=== PATIENT | male | born 1965 | race Caucasian/White ===

== ENCOUNTER 2019-06-07 07:35 | Emergency (ER) | payer SELFPAY ==
[~2019-06-07] VITALS: Ht 172.7 cm; Wt 81.6 kg
[2019-06-07] MEDS ORDERED: ONDANSETRON HCL INJ 2MG/ML 2ML 2 MG/ML VIAL IV STA (07:43)
[2019-06-07] MEDS ORDERED: SODIUM CHLORIDE 0.9% 1000ML 1,000 ML IV STA (07:43)
[2019-06-07] MEDS ORDERED: CLONIDINE HCL 0.1 MG TAB PO ONE (08:00)
--- NOTE | 2019-06-07 08:04 | NUR ---
BLOOD COLLECTED AND TAKEN TO LAB.
[2019-06-07] MEDS ORDERED: MORPHINE SULFATE INJ 4 MG/ML INJ 1ML IV ONE (08:05)
[2019-06-07 08:09] LABS: BASOPHILS % 0.3 % (0.0-1.0); EOSINOPHILS # (AUTO) 0.1 (0.0-0.4); EOSINOPHILS % 3.8 % (0.0-6.0); HEMATOCRIT 27.3 % (38.2-49.6); HEMOGLOBIN 9.1 g/dL (14.0-18.0); LYMPHOCYTES # (AUTO) 0.7 (1.0-3.2); LYMPHOCYTES % 17.9 % (18.0-39.1); MEAN CORPUSCULAR HEMOGLOBIN 31.7 pg (28-32); MEAN CORPUSCULAR HGB CONC 33.3 g/dL (31-35); MEAN CORPUSCULAR VOLUME 95.1 fL (81-99); MONOCYTES # (AUTO) 0.3 (0.2-0.8); NEUTROPHILS # (AUTO) 2.5 (2.1-6.9); NEUTROPHILS % 69.2 % (38.7-80.0); PLATELET COUNT 119 x10e3/uL (140-360); RED BLOOD COUNT 2.87 x10e6/uL (4.3-5.7); RED CELL DISTRIBUTION WIDTH 14.8 % (11.7-14.4)
[2019-06-07 08:31] LABS: ALBUMIN 3.4 g/dL (3.5-5.0); ANION GAP 13.7 mmol/L (8-16); CREATININE, SERUM 3.87 mg/dL (0.72-1.25); POTASSIUM 3.7 mmol/L (3.5-5.1)
[2019-06-07 08:32] LABS: BILIRUBIN,URINE NEGATIVE (NEGATIVE); CLARITY,URINE CLEAR (CLEAR); COLOR,URINE YELLOW (YELLOW); KETONES,URINE NEGATIVE (NEGATIVE); LEUKOCYTE ESTERASE ,URINE NEGATIVE (NEGATIVE); NITRITE,URINE NEGATIVE (NEGATIVE); PROTEIN,URINE DIPSTICK 3+ (NEGATIVE); URINE UROBILINOGEN 0.2 mg/dL (0.2 - 1)
--- NOTE | 2019-06-07 08:35 | Diagnostic Imaging Report ---
AP view the pelvis and AP view of the right hip Clinical indication: Fall, pain Comparison: None Impression: There is cortical irregularity of the lesser trochanter of the left femur which may secondary to partial avulsion. No other acute osseous abnormalities are identified. The hips demonstrate mild bilateral degenerative changes. Signed by: Bakari Jara MD on 06/07/2019 8:33 AM
[2019-06-07 08:38] LABS: CREATINE KINASE MB 5.1 ng/mL (0-5.0)
--- NOTE | 2019-06-07 08:39 | Diagnostic Imaging Report ---
Left femur, 2 views of 4 radiographs Clinical indication: Fall, pain Comparison: None Impression: The left femoral head is normally directed into the acetabulum. There is cortical irregularity of the lesser trochanter which may be secondary to partial avulsion. No other acute osseous abnormalities are identified. Signed by: Bakari Jara MD on 06/07/2019 8:36 AM
[2019-06-07 08:44] LABS: INR 1.02; PARTIAL THROMBOPLASTIN TIME 31.5 seconds (23.8-35.5)
[2019-06-07 08:47] LABS: AMORPHOUS SEDIMENT,URINE FEW (FEW); BACTERIA,URINE FEW /HPF; EPITHELIAL CELLS,URINE FEW /LPF; HYALINE CASTS 0-1 (0-1); MUCUS,URINE FEW (RARE); RBC,URINE 0-5 /HPF (0-5)
[2019-06-07 08:52] LABS: CALCIUM 6.4 mg/dL (8.4-10.2)
--- NOTE | 2019-06-07 08:52 | NUR ---
per lab patients calcium is 6.4 MD notified.
--- NOTE | 2019-06-07 09:42 | Diagnostic Imaging Report ---
History: Fall, approximately 8 feet. Comparison studies:None Technique: Axial images were obtained from the brain and cervical spine. Coronal and sagittal images reconstructed from the axial data. Intravenous contrast: None Dose modulation, iterative reconstruction, and/or weight based adjustment of the mA/kV was utilized to reduce the radiation dose to as low as reasonably achievable. Findings: Head CT: Scalp/skull: No abnormalities. No fractures, blastic or lytic lesions. Brain sulci: Appropriate for age. Ventricles: Normal in size and configuration. No hydrocephalus. Extra-axial spaces: No masses. No fluid collections. Parenchyma: No abnormal densities. No masses, hemorrhage, acute or chronic cortical vascular insults. Sellar/suprasellar region: No abnormalities. Craniocervical junction: Patent foramen magnum. No Chiari one malformation. Atherosclerotic calcifications of the carotid siphons and vertebral arteries Cervical spine CT: Fractures: None. Soft tissues: No gross abnormalities. Atlantoaxial articulation: Intact. Alignment: Straightening of the normal lordosis. No scoliosis. Cervicomedullary junction: No abnormalities. Patent foramen magnum. Vertebrae: No infection or neoplasm. Degenerative changes: Disc degeneration with decreased intervertebral space and endplate sclerosis at 4-5 and C5-6. Degenerative foraminal narrowing, moderate right and severe left at C4-5, moderate left at C5-6. Moderate degenerative canal stenosis at C4-5 and C5-6. Degenerative changes at the right AC joint. Incidental findings: Impression: Head CT: 1. No acute intracranial abnormality. Cervical spine CT: 1. No acute abnormalities. Degenerative changes as described above. Cannot exclude ligament, spinal cord and or vascular abnormalities on the basis of this examination. Signed by: DR Cedrick Elizabeth M.D. on 06/07/2019 9:45 AM
--- NOTE | 2019-06-07 10:07 | Diagnostic Imaging Report ---
History: Fell 8 to 10 ft. Comparison studies: None Technique: Axial images were obtained from T12 through the sacrum. Coronal and sagittal images reconstructed from the axial data. Intravenous contrast: None Dose modulation, iterative reconstruction, and/or weight based adjustment of the mA/kV was utilized to reduce the radiation dose to as low as reasonably achievable. Findings: Number of non-rib bearing vertebral bodies: 5 Alignment: Normal lordosis. No scoliosis. Soft tissues: No acute abnormalities. Atherosclerotic calcifications of the aorta Paraspinal muscles: Unremarkable. Vertebrae: No acute fractures, infection or neoplasm. Well-corticated bone fragment at L3 left transverse processes tip, related to chronic injury. Degenerative changes: L1-L2: Disc degeneration with decreased intervertebral space and vacuum disc phenomenon. Diffuse disc bulge and facet hypertrophy results in moderate central canal stenosis and mild bilateral foraminal narrowing L2-L3: Diffuse disc bulge and mild facet hypertrophy results in mild canal stenosis and mild bilateral foraminal narrowing L3-L4: Disc degeneration with decreased intervertebral space and anteriorly projecting osteophytes. Diffuse disc bulge and mild facet hypertrophy results in moderate canal stenosis and moderate bilateral foraminal narrowing L4-L5: Asymmetric left disc bulge, mild facet hypertrophy and ligamentum flavum buckling results in moderate canal stenosis and moderate bilateral foraminal narrowing L5-S1: Diffuse disc bulge without significant canal stenosis and mild bilateral foraminal narrowing Fusion defect at L5 posterior arch Sacroiliac joints: Mild degenerative changes degenerative changes. IMPRESSION: 1. No acute abnormality of the lumbar spine. 2. Degenerative changes as described above Signed by: DR Cedrick Elizabeth M.D. on 06/07/2019 10:04 AM
--- NOTE | 2019-06-07 10:21 | Diagnostic Imaging Report ---
CT of the chest, abdomen, and pelvis History: Trauma, fall off balcony, pain Comparison: None available. Technique: Multidetector CT scanning of the abdomen and pelvis was performed from the level of the thoracic inlet to the inferior pubic ramus, without contrast DOSE REDUCTION: The examination was performed according to departmental dose-optimization program which includes automated exposure control, adjustment of the mA and/or kV according to patient size and/or use of iterative reconstruction technique. DISCUSSION: CHEST FINDINGS: The visualized portions of the thyroid gland are within normal limits. There is no axillary adenopathy. Calcified hilar and subcarinal lymph nodes are likely the sequelae of prior granulomatous infection. The heart is within normal limits of size. Atherosclerotic coronary artery calcifications are noted. There is no pericardial effusion. The thoracic aorta is of normal course and caliber. The pulmonary artery is normal in size. The trachea and central airways are clear. There is no evidence of pulmonary contusion. No focal consolidation. Atelectasis is present in the bilateral lower lobes, right middle lobe, and lingula. Scattered calcified granulomas are present throughout both lungs. There is no pleural effusion. There is no pneumothorax. No acute thoracic osseous abnormalities are identified. There are multilevel degenerative changes of the thoracic spine. ABDOMEN/PELVIS FINDINGS: No focal hepatic lesions are identified. The gallbladder is absent. No intrahepatic or extrahepatic biliary dilatation. The spleen demonstrates multiple calcified granulomas. No evidence of splenic hematoma or laceration. Bilateral adrenal glands are within normal limits. Pancreas is normal in attenuation. There is no pancreatic ductal dilatation or peripancreatic inflammatory stranding. The kidneys are normal in size. No hydroureteronephrosis bilaterally. No renal calculi identified. Patient is status post gastric bypass. No dilated loops of small or large bowel are identified. There is no bowel wall thickening. There are scattered colonic diverticula without evidence of acute diverticulitis. There is no free intraperitoneal air or ascites. The abdominal aorta is of normal course and caliber. The urinary bladder is within normal limits. No acute osseous abnormalities are identified. No acute fractures or dislocations are identified. There is calcification at the insertion of the lesser trochanter of the femur which accounts for the cortical irregularity seen on the previously acquired radiographs. There is no avulsion of the left lesser trochanter. Multilevel degenerative changes of the thoracolumbar spine are present. IMPRESSION: 1. No noncontrast CT evidence of acute abnormalities within the chest, abdomen, or pelvis. 2. Calcifications at the insertion of a left psoas muscle account for the cortical irregularity described on recent pelvic and femur radiographs. There is no avulsion of the left lesser trochanter. Signed by: Bakari Jara MD on 06/07/2019 10:18 AM
== END 2019-06-07 11:09 | disposition home or self-care (01) ==
LOC: ER 07:35
DX: S20.222A Contusion of left back wall of thorax, initial encounter (principal); S70.02XA Contusion of left hip, initial encounter; W01.0XXA Fall on same level from slipping, tripping and stumbling without subsequent striking against object, initial encounter; Y92.008 Other place in unspecified non-institutional (private) residence as the place of occurrence of the external cause; N28.9 Disorder of kidney and ureter, unspecified; E83.51 Hypocalcemia; I10 Essential (primary) hypertension; E11.9 Type 2 diabetes mellitus without complications; Z98.84 Bariatric surgery status; Z89.511 Acquired absence of right leg below knee
CPT/HCPCS: 36415; 70450; 71250; 72125; 72131; 72170; 73552; 74176; 80053; 81001; 82550; 82553; 84484; 85025; 85610; 85730; 99284; J2270; J2405; J7030